=== PATIENT | female | born 2000 | race Caucasian/White ===

== ENCOUNTER → 2019-09-27 | Emergency (ER) | payer MEDICAID ==
[~2019-09-27] VITALS: Ht 172.7 cm; Wt 68.0 kg
[~2019-09-27] MED LIST: HYDROcodone-ACET 10/325MG TAB PO ONE
[2019-09-27 10:25] VITALS: BP 114/68
== END | disposition home or self-care (01) ==
LOC: ER 10:17
DX: S43.004A Unspecified dislocation of right shoulder joint, initial encounter (principal); X58.XXXA Exposure to other specified factors, initial encounter; Y93.89 Activity, other specified; Y92.89 Other specified places as the place of occurrence of the external cause; Y99.8 Other external cause status
CPT/HCPCS: 23650; 29105; 73020